=== PATIENT | male | born 1935 | race Caucasian/White ===

== ENCOUNTER 2018-02-15 16:00 | Emergency (ER) | payer MEDICARE, OTHER ==
[2018-02-15] MEDS: SOD CHLORIDE 0.9% 500 ML IV (16:19)
[2018-02-15 16:58] LABS: ADD MAN DIFF? NO
[2018-02-15 17:01] LABS: BASOPHILS % 0.3 % (0.0-2.0); EOSINOPHILS # 0.2 10^3/ul (0.0-0.5); EOSINOPHILS % 1.7 % (0.0-7.0); HEMATOCRIT 40.7 % (42.0-52.0); HEMOGLOBIN 13.3 g/dl (14.0-18.0); LYMPHOCYTES % 19.7 % (15.0-51.0); MEAN CORPUSCULAR HEMOGLOBIN 28.1 pg (29.0-33.0); MEAN CORPUSCULAR HGB CONC 32.7 g/dl (32.0-37.0); MONOCYTES % 9.6 % (0.0-11.0); NEUTROPHIL # 6.9 10^3/ul (1.6-7.5); NEUTROPHILS % 68.3 % (39.0-77.0); PLATELET COUNT 240 10^3/UL (140-415); RED BLOOD COUNT 4.73 10^6/ul (4.70-6.10); RED CELL DISTRIBUTION WIDTH 14.2 % (11.5-14.5)
[2018-02-15 17:01] LABS: WHITE BLOOD COUNT 10.1 10^3/ul (4.8-10.8)
[2018-02-15 17:20] LABS: INR 0.97
[2018-02-15 17:22] LABS: ANION GAP 13 (8-16); BLOOD UREA NITROGEN 29 mg/dl (7-20); CALCIUM 9.3 mg/dl (8.4-10.2); CARBON DIOXIDE 29 mmol/L (21-31); CHLORIDE 105 mmol/L (97-110); CREATININE 1.37 mg/dl (0.61-1.24); GLUCOSE 76 mg/dl (70-220); SODIUM 143 mmol/L (135-144)
[2018-02-15 17:30] LABS: TROPONIN-I < 0.012 ng/ml (0.000-0.120)
[2018-02-15 18:34] LABS: ADD UMIC YES; UR ASCORBIC ACID NEGATIVE (NEGATIVE); UR BILIRUBIN (Dip) NEGATIVE (NEGATIVE); UR BLOOD (Dip) NEGATIVE (NEGATIVE); UR CLARITY CLEAR (CLEAR); UR COLOR YELLOW (YELLOW); UR GLUCOSE (Dip) 2+ mg/dL (NEGATIVE); UR KETONES (Dip) NEGATIVE (NEGATIVE); UR LEUKOCYTE ESTERASE (Dip) NEGATIVE Leu/ul (NEGATIVE); UR NITRITE (Dip) NEGATIVE (NEGATIVE); UR RBC 1 /HPF (0-5); UR SPECIFIC GRAVITY (Dip) 1.016 (1.003-1.030); UR TOTAL PROTEIN (Dip) 3+ mg/dl (NEGATIVE); UR UROBILINOGEN (Dip) NEGATIVE (NEGATIVE); UR WBC 1 /HPF (0-5)
== END 2018-02-15 20:00 | disposition home or self-care (01) ==
LOC: E/R 16:00
DX: R55 Syncope and collapse (principal); E86.0 Dehydration; N28.9 Disorder of kidney and ureter, unspecified; D64.9 Anemia, unspecified; G31.9 Degenerative disease of nervous system, unspecified; I10 Essential (primary) hypertension; E11.9 Type 2 diabetes mellitus without complications
CPT/HCPCS: 36415; 70450; 71045; 80048; 81001; 84484; 85025; 85610; 93005; 99285-25